=== PATIENT | male | born 1955 | race Caucasian/White ===

== ENCOUNTER 2017-01-12 10:20 | Observation (INO) | payer OTHER ==
[2017-01-12 10:54] LABS: #Basophils 0.1 thou/uL (0.0-0.2); #Eosinphils 0.1 thou/uL (0.0-0.7); #Lymphocytes 3.8 thou/uL (1.20-3.40); #Monocytes 0.6 thou/uL (0.11-0.59); #Neutrophils 4.3 thou/uL (1.40-6.50); %Basophils 1.7 % (0.0-1.0); %Eosinophils 0.7 % (0.0-10.0); %Monocytes 6.7 % (0.0-10.0); Hematocrit 52.3 % (42.0-52.0); Mean Platelet Volume 8.3 fL (7.4-10.4); Red Blood Cell (RBC) Count 5.33 mill/uL (4.70-6.10); White Blood Cell (WBC) Count 8.9 thou/uL (4.8-10.8)
--- NOTE | 2017-01-12 11:07 | RAD ---
ONE VIEW CHEST: HISTORY: Chest pain. COMPARISON: 07/25/2014 and 08/28/2014 FINDINGS: Portable upright chest demonstrates a normal cardiac silhouette. The pulmonary vessels and hilum ar e normal. The costophrenic angles are clear. No mass. No consolidation. No pneumothorax or osseo us abnormality. IMPRESSION: No acute cardiopulmonary process. POS: [facility]
[2017-01-12 11:20] LABS: ALT (SGPT) 12 U/L (8-55); AST (SGOT) 15 U/L (5-34); Alkaline Phosphatase 68 U/L (40-150); Anion Gap 14 mmol/L (10-20); BUN (Urea Nitrogen) 8 mg/dL (8.4-25.7); Bilirubin, Total 1.3 mg/dL (0.2-1.2); Calc. Creatinine Clearance 0 mL/min (70-130); Calcium 9.5 mg/dL (7.8-10.44); Carbon Dioxide 28 mmol/L (22-29); Chloride 98 mmol/L (98-107); Estimated GFR-MDRD Greater than 90
[2017-01-12 11:24] LABS: Troponin I Less than 0.010 ng/mL (< 0.028)
[2017-01-12] MEDS ORDERED: methylPREDNISolone Sod Succ/PF 125 MG/2 ML VIAL ONE ×2 (12:42→12:44)
[2017-01-12 14:25] LABS: Troponin I Less than 0.010 ng/mL (< 0.028)
[2017-01-12] MEDS ORDERED: Enoxaparin Sodium 40 MG/0.4 ML SYRINGE SC SCH (14:37)
[2017-01-12] MEDS ORDERED: Acetaminophen 325 MG TAB PO PRN (14:37)
[2017-01-12] MEDS ORDERED: Ondansetron ODT 4 MG TAB PO PRN (14:37)
[2017-01-12] MEDS ORDERED: Ondansetron HCl/PF 4 MG/2 ML Vial IVP PRN (14:37)
[2017-01-12] MEDS ORDERED: Bisacodyl 5 MG TAB PO PRN (14:37)
[2017-01-12] MEDS ORDERED: Aspirin 81 mg Enteric Coated Tablet PO SCH (14:37)
[2017-01-12] MEDS ORDERED: Bisacodyl 10 MG SUPP PR PRN (14:37)
[2017-01-12] MEDS ORDERED: Nitroglycerin 0.4 MG TAB (25 Tab Bottle) PO PRN (14:37)
[2017-01-12] MEDS ORDERED: Acetaminophen 650 MG Suppository PR PRN (14:37)
[2017-01-12 14:47] VITALS: BMI 33.9
[2017-01-12 15:19] LABS: PTT 25.8 SEC (22.9-36.1); Prothrombin Time 12.7 SEC (12.0-14.7)
[2017-01-12 15:24] LABS: Hemoglobin A1c 5.1 % (4.0-6.0)
--- NOTE | 2017-01-12 17:05 | HP ---
OBSERVATION STATUS CHIEF COMPLAINT: Chest pain. HISTORY OF PRESENT ILLNESS: This is a 61-year-old old male with past history of hypertension, hyper lipidemia, tobacco abuse, and COPD, who presents with a week history of worsening cough with questio nable sputum production and increased shortness of breath. Last night he had an episode about 2 min rs where he just could not catch his breath and nearly came into the hospital, but he felt like he m ay be improved a bit with use of his inhaler. This worsened today and he decided to come and be see n. In addition to this, he has also had some lower sternal chest pain that does not radiate, it is moderate to severe in nature and lasts anywhere from 30 seconds to a minute at a time. Sometimes it is exertional, sometimes it is not, it is not consistently relieved with rest, it is not associated with any nausea, vomiting, or diaphoresis. He has not been taking any medications for this. REVIEW OF SYSTEMS: Constitutional: Denies fever or chills. Eyes: Denies icterus or injection or eye pain. Ears, Nose, Mouth, Throat. Denies sore throat or ear pain. Cardiovascular: See HPI. Resp iratory: See HPI. Gastrointestinal: No nausea, vomiting, constipation, or diarrhea. Genitourinar y: No dysuria or urgency. Musculoskeletal: No myalgias or arthralgias. Skin: He has multiple ki nd of scattered abrasions, but denies a wound or rash. Neurologic: Denies weakness or numbness. P sychiatric: Denies anxiety or depression. All other systems reviewed and are negative. PAST MEDICAL HISTORY: Positive for hypertension, COPD, and hyperlipidemia. PAST SURGICAL HISTORY: Positive for 2 shoulder surgeries. FAMILY HISTORY: Noncontributory. MEDICATIONS: Hydrochlorothiazide and ProAir. SOCIAL HISTORY: Drinks 4-5 beers a day to every other day and has a longstanding history, also has about a [id number] history of smoking. Denies drug use. ALLERGIES: No known drug allergies. PHYSICAL EXAMINATION: VITAL SIGNS: Pulse in the 70s, blood pressure is one-teens over 70s, satting 96% on room air and af ebrile. GENERAL: He is in no acute distress. EYES: Without icterus or injection. Pupils equal, round, reactive to light. EARS, NOSE, MOUTH, THROAT: Moist mucous membranes. Pinna is normal and no rhinorrhea. NECK: Trachea midline, mobile without thyromegaly. CARDOVASCULAR: Regular rate and rhythm without murmur, gallops or rub. No peripheral edema or izquierdo tid bruit. RESPIRATORY: He is slightly tachypneic. No prominent retractions. He has diffuse inspiratory and expiratory wheezes with inspiratory crackles on the left side. GASTROINTESTINAL: Bowel sounds positive. Obese. Nontender to palpation. I cannot palpate any org anomegaly. GENITOURINARY: Deferred. MUSCULOSKELETAL: Without any deformity or contracture or joint swelling. SKIN: He has some scattered abrasions on the lower extremities, but otherwise no wound or rash. NEUROLOGIC: Motor 5/5 throughout. Sensation intact to light touch throughout as well. PSYCHIATRIC: Alert and oriented x3. Mood and affect appropriate for current medical condition. LABORATORY DATA: CBC was reviewed, pertinent for MCV of 98.1. Chemistries reviewed and it is perti nent for a total bilirubin of 1.3, normal renal function, negative BNP and a negative troponin. I a m unable to view of the chest x-ray myself, but the interpretation reads no acute cardiopulmonary pr ocess and again I will attempt to find the EKG which is currently not visible to me. ASSESSMENT AND PLAN: This is a 61-year-old male with: 1. Chest pain. We will go ahead and make n.p.o. at midnight and schedule for pharmacologic stress test in the morning after ruling out by enzymes. 2. Chronic obstructive pulmonary disease exacerbation. He has been started on Levaquin. This is a reasonable choice. We will also schedule DuoNebs q.4, p.r.n. as well. Prednisone 40 daily for 5 d ays and begin a controller medication in the morning. 3. Obesity. Counseled diet and exercise. 4. Tobacco abuse, counseled cessation. 5. Alcohol abuse, counseled cessation as well. 6. Elevated bilirubin. This could possibly be due to his chronic alcohol use. We will perform a r ight upper quadrant ultrasound to investigate further coagulation, coags to be sent. 7. Hyperlipidemia. We will start a statin and aspirin as well for his chest pain. Parenteral nitr oglycerin p.r.n. and morphine p.r.n. for his chest pain. 8. DVT prophylaxis with Lovenox. 9. History of hypertension. We will monitor, currently he is doing well. Continue hydrochlorothia zide or JUANITA inhibitor pending results of laboratory testing to include TSH, lipid panel, A1c and hep atitis panel.
[2017-01-12 17:58] LABS: Troponin I Less than 0.010 ng/mL (< 0.028)
[2017-01-12] MEDS ORDERED: Famotidine 20 MG TAB PO SCH (21:00)
[2017-01-12] MEDS ORDERED: Atorvastatin Calcium 40 MG TAB PO SCH (21:00)
[2017-01-12] MEDS ORDERED: Nicotine 14 MG PATCH TD SCH (22:00)
--- NOTE | 2017-01-12 22:33 | HP-2 ---
DATE OF ADMISSION: 01/12/2017 LOCATION OF ADMISSION: [facility]. CODE STATUS: FULL. PRIMARY CARE PHYSICIAN: Dr. Bob. ATTENDING: Walter Rashid MD RESIDENT: Tereso Wilson MD, PGY-1. CHIEF COMPLAINT: Shortness of breath, chest pain. HISTORY OF PRESENT ILLNESS: This is a 61-year-old male with chest pain, presents with chest pain and shortness of breath. He states that a couple of weeks ago he started feeling ill, started having an increased cough. He said when he was coughing he was not coughing an abnormal sputum. Last night he had an episode where he could not hardly breathe. It lasted about 2 hours. He was continually using his nebulizer and albuterol, said there were multiple times in this episode where he could not get his breath, said he finally got better. During this time, he also reported being clammy. Denies any fever or chills. States he did not come to the ER as he had a doctor's appointment with Dr. Bob today. He also reports having chest pain a couple of nights ago lasting about 30-40 seconds. He said he has had this chest pain for about 2-3 months, says it happens about 3-4 times a week. He says the most times it happens is after his cutting grass on his riding lawnmower or arguing with his . He said that he also has some shortness of breath and he said he tried one time using albuterol and did not relieve the pain. He said his head squeezes with the chest pain and reports a little bit of numbness and tingling unilaterally in his left leg when the chest pain comes on. He reports nothing seems to relieve it, goes away pretty shortly. Denies any other symptoms. Denies any nausea, vomiting, diarrhea, or constipation. Denies any headaches, loss of vision, or dizziness. Denies any weakness or decreased strength. Denies any other complaints at this time. REVIEW OF SYSTEMS: All review of systems not listed in the HPI are otherwise negative at this time. PAST MEDICAL HISTORY: 1. COPD. 2. Hypertension. 3. Tobacco use. 4. Hyperlipidemia. 5. Osteoarthritis. PAST SURGICAL HISTORY: He has had a shoulder surgery in the past. ALLERGIES: None. MEDICATIONS: Hydrochlorothiazide 25 mg, ipratropium/albuterol 0.5 mg/3 mg, ProAir 2-3 times a day. FAMILY HISTORY: Mother had stomach cancer. Dad, insignificant. SOCIAL HISTORY: He is a 1 pack per day smoker for the last 40 years. Drinks 4- 5 beers every other day. No illicit drug use. PHYSICAL EXAMINATION: VITAL SIGNS: Blood pressure 124/81, pulse is 60, respirations 22, temperature 98.7, pulse ox is 99% on room air, current weight is 111 kilograms. GENERAL: He is alert and oriented x3. Well developed, obese, appropriately interactive. EYES: Conjunctivae within normal limits. ENT: Oropharynx within normal limit. Moist mucous membranes. NECK: Supple, no lymphadenopathy, no thyromegaly, no bruits. CARDIOVASCULAR: Regular rate and rhythm. No murmurs, no gallops. Radial pulses, pedal pulses palpated bilaterally. RESPIRATORY: Abnormal breathing effort. No retractions. He does have expiratory wheezes in all lung quadrants on auscultation. SKIN: Warm, dry. ABDOMEN: Soft, nontender to palpation. Bowel sounds heard in all 4 quadrants. MUSCULOSKELETAL: Structure within normal limits. Moves all extremities bilaterally. NEUROLOGIC: No focal neuro deficit. PSYCHIATRIC: Appropriate. LABORATORY DATA: White blood cell count 8.9, hemoglobin 17.4, hematocrit 52.3, platelets 195. Sodium 136, potassium 3.8, chloride is 98, bicarbonate 20, BUN is 8, creatinine normal, and glucose 99, albumin is 4.0, total protein is 7.0, total bilirubin is 1.3, calcium is 9.5, AST 15, ALT 12, alkaline phosphatase is 68, CK-MB is 1.4, troponin is less than 0.010 and BNP is 35. EKG showed maybe some conduction delay. Chest x-ray, no acute process noted. ASSESSMENT AND PLAN: 1. Atypical chest pain. We will admit him to tele observation for continuous tele monitoring. We will make him n.p.o. at midnight for an a.m. stress test. We will start him on heart healthy diet for now. We will trend cardiac profile q.3 hours. We will check a fasting lipid panel, TSH, magnesium, phos and A1c. We will give him nitro p.r.n. for chest pain to see if that helps with the pain. He was not taking aspirin or statin. We will start these at this time for cardioprotective effects. 2. Mild chronic obstructive pulmonary disease exacerbation. We will start him on Levaquin and prednisone to help with breathing and coughing. We will start him on DuoNebs q.4 hour schedule and give DuoNebs q.2 hours p.r.n. as needed for shortness of breath. I also have ordered to monitor O2 sat and to use oxygen to keep above 92. 3. Hypertension. We will continue home medications. 4. Hyperlipidemia. We will get a fasting lipid panel and start statin. 5. Elevated bilirubin. We will get a right upper quadrant ultrasound, likely due to beer use. We will also check his PT and PTT to check liver function. 6. Tobacco abuse. We have counseled him on quitting. 7. Deep venous thrombosis prophylaxis. We will use Lovenox at this time. SADIED
[2017-01-13 06:04] LABS: #Basophils 0.1 thou/uL (0.0-0.2); #Lymphocytes 3.1 thou/uL (1.20-3.40); #Monocytes 0.8 thou/uL (0.11-0.59); #Neutrophils 9.9 thou/uL (1.40-6.50); %Basophils 0.6 % (0.0-1.0); %Lymphocytes 22.4 % (21.0-51.0); %Monocytes 5.6 % (0.0-10.0); Hematocrit 48.5 % (42.0-52.0); Mean Platelet Volume 9.1 fL (7.4-10.4); Red Blood Cell (RBC) Count 4.92 mill/uL (4.70-6.10); White Blood Cell (WBC) Count 13.8 thou/uL (4.8-10.8)
[2017-01-13 06:15] LABS: ALT (SGPT) 11 U/L (8-55); AST (SGOT) 12 U/L (5-34); Alkaline Phosphatase 65 U/L (40-150); Anion Gap 13 mmol/L (10-20); BUN (Urea Nitrogen) 14 mg/dL (8.4-25.7); Bilirubin, Total 0.7 mg/dL (0.2-1.2); Calc. Creatinine Clearance 135 mL/min (70-130); Calcium 9.4 mg/dL (7.8-10.44); Carbon Dioxide 26 mmol/L (22-29); Chloride 99 mmol/L (98-107); Cholesterol 169 mg/dl (< 200 Desired); Estimated GFR-MDRD 84; Globulin 2.9 g/dL (2.4-3.5); LDL Cholesterol, Calculated 101 mg/dL; Protein, Total 6.6 g/dL (6.0-8.3)
[2017-01-13] MEDS ORDERED: predniSONE 20 MG TAB PO SCH (08:00)
--- NOTE | 2017-01-13 08:38 | PDOC.FM ---
- Subjective Subjective: Pt reports doing well this morning. Is just hungry waiting for his stress test. Had no chest pain overnight. Denies any SOB or coughing episodes overnight. Denies any fever or chills. Denies any other problems at this time. - Objective MAR Reviewed: Yes Vital Signs & Weight: Vital Signs (12 hours) Temp Pulse Resp BP BP Pulse Ox 01/13/17 06:52 76 15 96 01/13/17 05:01 97.6 F 75 20 124/66 94 L 01/13/17 02:14 78 12 01/12/17 23:15 98.3 F 77 18 106/62 96 01/12/17 22:06 12 Weight Weight 112.128 kg I&O: 01/12/17 01/13/17 01/14/17 06:59 06:59 06:59 Intake Total 480 Balance 480 Result Diagrams: 01/13/17 04:58 01/13/17 04:58 Radiology Reviewed by me: Yes (No new imaging to be reviewed today) <Tereso Wilson - Last Filed: 01/13/17 08:36> - Objective Vital Signs & Weight: Vital Signs (12 hours) Temp Pulse Resp BP BP Pulse Ox 01/13/17 10:32 60 14 97 01/13/17 08:00 98.6 F 77 22 H 110/59 L 92 L 01/13/17 06:52 76 15 96 01/13/17 05:01 97.6 F 75 20 124/66 94 L 01/13/17 02:14 78 12 Weight Weight 247 lb 3.2 oz I&O: 01/12/17 01/13/17 01/14/17 06:59 06:59 06:59 Intake Total 480 Balance 480 Result Diagrams: 01/13/17 04:58 01/13/17 04:58 <Wayne Sykes - Last Filed: 01/13/17 12:57> Phys Exam - Physical Examination HEENT: moist MMs Neck: no nodes, no JVD, supple, full ROM Respiratory: wheezing present, clear to auscultation bilateral Cardiovascular: RRR, no significant murmur, no rub Gastrointestinal: soft, non-tender, no distention, positive bowel sounds Musculoskeletal: no edema, pulses present Neurological: non-focal, moves all 4 limbs Psychiatric: normal affect, A&O x 3 Skin: no rash <Tereso Wilson - Last Filed: 01/13/17 08:36> Dx/Plan (1) Chest pain Code(s): R07.9 - CHEST PAIN, UNSPECIFIED Status: Acute Plan: -NPO, awaiting stress test this AM, if negative likely patient can be D/c today. -Trops x3 were negative -No acute events on tele monitoring -continue with aspirin -Nitro PRN for chest pain (2) Acute exacerbation of chronic obstructive pulmonary disease (COPD) Code(s): J44.1 - CHRONIC OBSTRUCTIVE PULMONARY DISEASE W (ACUTE) EXACERBATION Status: Acute Plan: -PO Levaquin and Prednisone -Violetta Duonebs Q4hrs, Q2hrs for breakthrough SOB -Not requiring Oxygen at this time -Will continue to monitor vitals and tx accordingly (3) Elevated bilirubin Code(s): R17 - UNSPECIFIED JAUNDICE Status: Acute Plan: Total bili .7 today. Resolved -Awaiting results of RUQ u/s -Likely 2/2 to alcohol use. (4) Essential hypertension Code(s): I10 - ESSENTIAL (PRIMARY) HYPERTENSION Status: Acute Plan: -continued home meds -BP stable, will continue to monitor (5) Hyperlipidemia Code(s): E78.5 - HYPERLIPIDEMIA, UNSPECIFIED Status: Acute Plan: -started on Lipitor -Will continue tx when D/C (6) Tobacco abuse Code(s): Z72.0 - TOBACCO USE Status: Acute Plan: -counseled on quitting -Using a nicotine patch <Tereso Wilson - Last Filed: 01/13/17 08:36> Attending Addendum - Attending Addendum I personally evaluated the patient and discussed the management with Dr. Wilson I agree with the History, Examination, Assessment and Plan documented above. <Wayne Sykes - Last Filed: 01/13/17 12:57>
[2017-01-13] MEDS ORDERED: Aspirin 81 mg Enteric Coated Tablet PO SCH (09:00)
[2017-01-13 13:22] VITALS: BP 131/63; TEMP 97.8
--- NOTE | 2017-01-13 13:46 | NM ---
NUCLEAR MEDICINE CARDIAC PERFUSION EXAMINATION WITH EJECTION FRACTION: HISTORY: 61-year-old male with chest pain, COPD, hypertension, and dyslipidemia. TECHNIQUE: A two day nuclear medicine cardiac perfusion examination was performed. Rest images were obtained us ing 30.2 mCi of technetium-99m sestamibi. Stress images were obtained the following day using 27 mCi of technetium-99m sestamibi and Lexiscan. FINDINGS: Tomographic images show no fixed or reversible perfusion defects. Gated images show normal wall yael on with an ejection fraction of 62%. EDV: 176 ml LHR: 0.4 TID: 1.1 IMPRESSION: No evidence of ischemia. POS: [facility]
--- NOTE | 2017-01-13 13:50 | ULT ---
RIGHT UPPER QUADRANT ABDOMINAL ULTRASOUND: Date: 01/13/17 HISTORY: Elevated bilirubin. Evaluate for cirrhosis. TECHNIQUE: Multiplanar Lara scale and color Doppler images were obtained in a right upper quadrant abdominal ul trasound. FINDINGS: There is a small, 8.0 mm, cyst adjacent to the gallbladder. No biliary dilatation is seen. The gallb ladder is predominantly contracted without shadowing stones or gallbladder wall thickening. The comm on bile duct is normal measuring 4.0 mm. The pancreas was obscured by bowel gas. There are echogenic nonshadowing foci of the right kidney wh ich could represent nonobstructing renal calcifications. There is no evidence of hydronephrosis. The right kidney measures 10.3 cm in length. IMPRESSION: 1. Hepatic cysts. 2. Proximal nonobstructing right renal calculi. POS: [facility]
[2017-01-13] MEDS ORDERED: Regadenoson 0.4 MG/5 ML SYRINGE ONE (15:18)
--- NOTE | 2017-01-14 08:53 | DIS-2 ---
DATE OF ADMISSION: 01/12/2017 DATE OF DISCHARGE: 01/13/2017 ADMITTING ATTENDING: Dr. Rashid. DISCHARGE ATTENDING: Wayne Sykes M.D. RESIDENT: Tereso Wilson M.D., PGY1. CONSULTATIONS: None. PROCEDURES: Nuclear medicine stress test, which showed no evidence of ischemia. DIAGNOSES: 1. Atypical chest pain. 2. Mild chronic obstructive pulmonary disease exacerbation. 3. Obesity. 4. Tobacco abuse. 5. Alcohol abuse. 6. Elevated bilirubin. 7. Hyperlipidemia. 8. History of hypertension. DISCHARGE MEDICATIONS: Hydrochlorothiazide 25 mg p.o. daily, prednisone 40 mg p.o. for 3 more days, nicotine 14 mg transdermal q.24 hours, Levaquin 750 mg p.o. once a day for 5 more days, DuoNeb 3 mL nebulizers, Lipitor 40 mg p.o. daily, aspirin 81 mg daily, ProAir 2 puffs inhalers q.4 hours p.r.n., and regular strength Tylenol. DISCONTINUED MEDICATIONS: There were no discontinued medications at this visit. HISTORY OF PRESENT ILLNESS AND BRIEF HOSPITAL COURSE: This is a 61-year-old male with a history of hypertension, hyperlipidemia, tobacco abuse, and COPD, who came in with a 2-week history of worsening cough, having a cough attack the night before that lasted 2 hours where he could not catch his breath after using multiple nebulizers and using albuterol inhaler. He went to the [facility] and was sent over here. There, he also reported that he has had a 2-3 month history of chest pain that feels like someone is punching him in the chest, does not radiate anywhere, this happens 4-5 times a week, lasting anywhere from 30 seconds to a minute, sometimes exertional, sometimes just when he is sitting down, nothing seems to alleviate, and it is not associated with any other symptoms. One time, he did try his albuterol inhaler and did not help it improve and at that time he was admitted. Troponins were trended, they were less than 0.01 x3. He had a nuclear stress test, which was negative. His chest x-ray on admission showed no acute cardiopulmonary process. He is admitted for telemetry observation and no acute events happened overnight. We checked a CBC, which stayed normal. His white blood cell count went from 8.9 TO 13.8 but likely due to steroids. His CMP on admission, he did have elevated total bilirubin of 1.3, when checked the next day was 0.7. The patient did report a history of drinking 4-5 beers a day, likely since he had not been drinking for the last few days, his bilirubin trended downwards. We got a fasting lipid panel on him, which showed a cholesterol of 169 and LDL cholesterol of 101 and HDL cholesterol of 50. His heart disease risk was 3%. Last checked TSH on him, which was normal at 0.9. At this time, patient on his medication list, he only had nebulizers, his ProAir , and hydrochlorothiazide. He was not on an aspirin or statin. At this time, we started him on a baby aspirin and started him on a moderate dose statin for his risk of heart disease. With a mild COPD exacerbation when we saw him, he is satting 99% on room air. Did have expiratory wheezes, we started him on p.o. Levaquin and p.o. course of high dose prednisone. At this time, after stress test was negative, the patient was doing better, had not reported any chest pain, and was stable for discharge. We sent him home to finish off a course of Levaquin for 5 more days and finish his prednisone for 3 more days for a total of 5 days of prednisone. OUTLOOK: Stable. DISCHARGE INSTRUCTIONS: 1. Discharge location: Home. 2. Diet: Heart healthy. 3. Activity: Activity as tolerated. 4. Followup: He will follow up with his primary care provider in 2 weeks for hospital followup. IBRAHIMA
--- NOTE | 2017-01-20 21:49 | EKG ---
Test Reason : Blood Pressure : / mmHG Vent. Rate : 074 BPM Atrial Rate : 074 BPM P-R Int : 200 ms QRS Dur : 120 ms QT Int : 404 ms P-R-T Axes : 060 003 023 degrees QTc Int : 448 ms Normal sinus rhythm Non-specific intra-ventricular conduction delay Borderline ECG When compared with ECG of 21-JUL-2011 10:42, QT has lengthened Confirmed by PETTY VILLAR (2) on 01/20/2017 9:48:39 PM Referred By: AZUCENA Confirmed By:PETTY VILLAR
== END 2017-01-13 15:20 | disposition home or self-care (01) ==
LOC: ERS 10:20 → 2SW 12:41
PROVIDERS: ADMIT Internal Medicine; ATTEND Internal Medicine
DX: R07.89 Other chest pain (principal); J44.1 Chronic obstructive pulmonary disease with (acute) exacerbation; E66.9 Obesity, unspecified; F10.10 Alcohol abuse, uncomplicated; E80.7 Disorder of bilirubin metabolism, unspecified; E78.5 Hyperlipidemia, unspecified; I10 Essential (primary) hypertension; R06.02 Shortness of breath; M19.90 Unspecified osteoarthritis, unspecified site; F17.210 Nicotine dependence, cigarettes, uncomplicated; Z68.33 Body mass index [BMI] 33.0-33.9, adult; Z79.899 Other long term (current) drug therapy; Z98.890 Other specified postprocedural states
CPT/HCPCS: 36415; 71010; 76705; 78452; 80053; 80061; 82553; 83036; 83880; 84443; 84484; 85025; 85610; 85730; 93005; 93010; 93017; 94640; 94760; 96365; 96372; 96375; A9500; G0378; J1650; J1956; J2785; J2930; J7506; J7620

== ENCOUNTER 2017-03-15 07:35 | Outpatient (CLI) | payer OTHER ==
--- NOTE | 2017-03-15 08:22 | RAD ---
AP VIEW OF THE CHEST: INDICATION: History of dyspnea. COMPARISON: Prior exam dated 08/28/14. FINDINGS: No focal consolidation or pleural effusion is evident. Cardiomediastinal silhouette is within normal limits. Multilevel spondylosis is similar. IMPRESSION: No acute cardiopulmonary abnormality. POS: [facility]
== END 2017-03-15 07:36 | disposition home or self-care (01) ==
LOC: RAD 07:35
PROVIDERS: ATTEND Internal Medicine Critical Care Medicine
DX: R06.00 Dyspnea, unspecified (principal)
CPT/HCPCS: 71046

== ENCOUNTER 2017-07-15 09:08 | Outpatient (CLI) | payer OTHER ==
--- NOTE | 2017-07-15 11:24 | CT ---
CT PULMONARY LUNG SCAN WITHOUT CONTRAST: INDICATIONS: A 62-year-old male with a smoking history of 40+ years with shortness of breath. COMPARISON: No comparisons are available. TECHNIQUE: A low-dosed CT examination was performed of the thorax without IV contrast, utilizing a lung cancer s creening protocol. Axial, sagittal, and coronal reformatted images were constructed from the raw olvin a. FINDINGS: There is a small calcified granuloma within the left lower lobe on image 39 of series 3. There is a small, sub-4-mm pulmonary nodule in the right upper lobe, anterior segment, on image 30 of series 3. No suspicious pulmonary nodule is evident. There is scattered central lobular emphysema. There are scattered calcifications involving the thoracic aorta and coronary arteries. The adrenal glands are normal appearing. No acute osseous abnormality is identified. There is multilevel spondylosis of t he lumbar spine. There is confluent flow in the anterior osteophytes, spanning T7 through T11, which can be seen with DISH. IMPRESSION: 1. Lung-RADS category 2S. Tiny nodule seen within the right upper lobe with a low likelihood of bec oming clinically significant active cancer due to size. Continued annual screening with low dose CT in 12 months is recommended. 2. Category S: Centrilobular emphysema. Coronary artery thoracic aortic calcifications. Findings o f prior granulomatous disease. Diffuse idiopathic skeletal hyperostosis (DISH) like changes of the mi d to lower thoracic spine. POS: [facility]
== END 2017-07-15 09:09 | disposition home or self-care (01) ==
LOC: CT 09:08
PROVIDERS: ATTEND Family Medicine
DX: F17.210 Nicotine dependence, cigarettes, uncomplicated (principal); F17.201 Nicotine dependence, unspecified, in remission; J43.9 Emphysema, unspecified; R91.1 Solitary pulmonary nodule; I70.0 Atherosclerosis of aorta
CPT/HCPCS: G0297

== ENCOUNTER 2018-04-14 08:28 | Outpatient (CLI) | payer OTHER ==
--- NOTE | 2018-04-14 09:38 | RAD ---
EXAM: CHEST TWO VIEWS: History: Dyspnea. Comparison: 12-23-17 FINDINGS: Heart size is within normal limits. The lungs are clear. No pneumonia, edema, pleural effusion or oth er acute process. IMPRESSION: Minimal stable chronic changes. No acute intrathoracic disease. Atherosclerosis of the aorta. POS: [facility]
== END 2018-04-14 08:29 | disposition home or self-care (01) ==
LOC: RAD 08:28
PROVIDERS: ATTEND Internal Medicine Critical Care Medicine
DX: R06.00 Dyspnea, unspecified (principal); I70.0 Atherosclerosis of aorta
CPT/HCPCS: 71046

== ENCOUNTER 2018-06-12 18:02 | Emergency (ER) | payer OTHER ==
--- NOTE | 2018-06-12 18:22 | RAD ---
FRadiograph chest one view: HISTORY: 63-year-old male with dyspnea FINDINGS: The visualized lung hernández are clear. The cardiomediastinal silhouette is normal. No pneumothorax. IMPRESSION: No acute cardiopulmonary findings.
[2018-06-12 18:31] LABS: #Basophils 0.1 thou/uL (0.0-0.2); #Eosinphils 0.1 thou/uL (0.0-0.7); #Lymphocytes 3.2 thou/uL (1.20-3.40); #Monocytes 0.7 thou/uL (0.11-0.59); #Neutrophils 6.1 thou/uL (1.40-6.50); %Basophils 1.2 % (0.0-1.0); %Eosinophils 0.5 % (0.0-10.0); %Lymphocytes 31.5 % (21.0-51.0); %Neutrophils 59.8 % (42.0-75.0); Hemoglobin 17.1 g/dL (14.0-18.0); Mean Corpuscular HGB CONC 32.8 g/dL (32.0-36.0); Mean Corpuscular Hemoglobin 32.1 pg (27.0-31.0); Mean Corpuscular Volume 98.1 fL (78.0-98.0); Mean Platelet Volume 9.3 fL (7.4-10.4); Platelet Count 146 thou/uL (130-400); RBC Distribution Width 12.8 % (11.5-14.5); Red Blood Cell (RBC) Count 5.33 mill/uL (4.70-6.10); White Blood Cell (WBC) Count 10.2 thou/uL (4.8-10.8)
[2018-06-12] MEDS ORDERED: predniSONE 20 MG TAB ONE (18:43)
[2018-06-12 18:50] LABS: ALT (SGPT) 17 U/L (8-55); AST (SGOT) 20 U/L (5-34); Albumin 4.3 g/dL (3.4-4.8); Alkaline Phosphatase 85 U/L (40-150); Anion Gap 14 mmol/L (10-20); BUN (Urea Nitrogen) 10 mg/dL (8.4-25.7); Calc. Creatinine Clearance 0 mL/min (70-130); Calcium 9.4 mg/dL (7.8-10.44); Carbon Dioxide 27 mmol/L (23-31); Chloride 102 mmol/L (98-107); Estimated GFR-MDRD 78; Globulin 3.1 g/dL (2.4-3.5); Glucose 85 mg/dL (80-115); Potassium 4.1 mmol/L (3.5-5.1); Protein, Total 7.4 g/dL (5.8-8.1); Sodium 139 mmol/L (136-145)
[2018-06-12] MEDS ORDERED: Acetaminophen 500 MG TAB ONE (19:15)
== END 2018-06-12 19:40 | disposition home or self-care (01) ==
LOC: ERS 18:02
DX: J44.1 Chronic obstructive pulmonary disease with (acute) exacerbation (principal); I10 Essential (primary) hypertension; E78.00 Pure hypercholesterolemia, unspecified; F17.210 Nicotine dependence, cigarettes, uncomplicated
CPT/HCPCS: 36415; 71045; 80053; 83880; 85025; 93005; 94640; J7620

== ENCOUNTER 2018-08-25 08:04 | Outpatient (CLI) | payer OTHER ==
--- NOTE | 2018-08-25 10:35 | CT ---
CT CHEST WITHOUT CONTRAST: INDICATIONS: COPD. Prior history of nicotine dependency with smoking. COMPARISON: CT lung scan from 07/15/2017. TECHNIQUE: Multiple axial tomograms obtained through the chest without IV enhancement. A low dose screening pro tocol was followed. FINDINGS: The tiny nodule in the right upper lobe, described on the prior exam, is not apparent today. On today's exam, there is a focal nodular density in the posterior right lower lobe, paravertebral lo cation, abutting the pleural surface, which is new from the prior study. This also has a linear comp onent and may represent focal infiltrate or atelectasis. In the axial plane, the nodular portion indigo sures approximately 10 mm. In the left lung, there is a 3 mm calcified granuloma in the left lower lobe, peripherally. The mediastinum is unremarkable. Images through the upper abdomen are unremarkable. Degenerative sp ine changes are stable in appearance with bridging osteophytes seen anterolaterally, in the mid thora cic spine, as described previously. IMPRESSION: A new area of nodularity in the posterior right lower lobe, measuring up to 10 mm in the axial plane. This could represent a focal inflammatory infiltrate or focal atelectasis. Recommend clinical jesusita elation regarding symptoms of infiltrate. Short-term followup is suggested, with repeat noncontrast CT in three to four months to re-evaluate. POS: [facility]
== END 2018-08-25 08:05 | disposition home or self-care (01) ==
LOC: CT 08:04
PROVIDERS: ATTEND Family Medicine
DX: F17.200 Nicotine dependence, unspecified, uncomplicated (principal); J44.9 Chronic obstructive pulmonary disease, unspecified; R91.8 Other nonspecific abnormal finding of lung field
CPT/HCPCS: G0297

== ENCOUNTER 2021-09-24 12:39 | Outpatient (CLI) | payer MEDICARE | END 2021-09-24 12:40 | disposition home or self-care (01) | LOC: BICCT 12:39 | PROVIDERS: ATTEND General Practice | DX: Z12.2 Encounter for screening for malignant neoplasm of respiratory organs (principal); F17.219 Nicotine dependence, cigarettes, with unspecified nicotine-induced disorders; J42 Unspecified chronic bronchitis | CPT/HCPCS: 71271 ==

== ENCOUNTER 2022-10-14 10:46 | Outpatient (CLI) | payer MEDICARE | END 2022-10-14 10:47 | disposition home or self-care (01) | LOC: CT 10:46 | PROVIDERS: ATTEND Student in an Organized Health Care Education/Training Program | DX: Z12.2 Encounter for screening for malignant neoplasm of respiratory organs (principal); J44.9 Chronic obstructive pulmonary disease, unspecified; F17.210 Nicotine dependence, cigarettes, uncomplicated | CPT/HCPCS: 71271 ==

== ENCOUNTER 2024-12-14 10:21 | Inpatient (IN) | payer MEDICARE ==
[2024-12-14] MEDS ORDERED: cefTRIAXone (ROCEPHIN) 2 GM VIAL ONE (10:43)
[2024-12-14] MEDS ORDERED: Azithromycin 500 MG VIAL ONE (10:43)
[2024-12-14 11:05] LABS: ALT (SGPT) 20 U/L (Less than 45); AST (SGOT) 25 U/L (11-34); Albumin 4.0 g/dL (3.1-4.5); Alkaline Phosphatase 79 U/L (40-110); Anion Gap 13 mmol/L (10-20); BUN (Urea Nitrogen) 7 mg/dL (8.4-25.7); Bilirubin, Total 1.1 mg/dL (0.3-1.2); Calc. Creatinine Clearance 0 mL/min (70-130); Calcium 9.5 mg/dL (7.8-10.44); Carbon Dioxide 26 mmol/L (23-31); Chloride 107 mmol/L (98-107); Globulin 3.1 g/dL (2.4-3.5); Glucose 121 mg/dL (80-115); Potassium 4.3 mmol/L (3.5-5.1); Sodium 142 mmol/L (136-145)
[2024-12-14 11:17] LABS: #Basophils 0.03 10x3/uL (0.0-0.2); #Eosinophils 0.11 10x3/uL (0.0-0.7); #Monocytes 0.51 10x3/uL (0.11-0.59); #Neutrophils 4.93 10x3/uL (1.40-6.50); %Basophils 0.4 % (0.0-1.0); %Eosinophils 1.4 % (0.0-10.0); %Lymphocytes 26.3 % (21.0-51.0); %Monocytes 6.7 % (0.0-10.0); %Neutrophils 64.8 % (42.0-75.0); Hematocrit 51.4 % (42.0-52.0); Hemoglobin 17.0 g/dL (14.0-18.0); Mean Corpuscular Hemoglobin 32.0 pg (27.0-31.0); Mean Corpuscular Volume 96.8 fL (78.0-98.0); Platelet Count 143 10x3/uL (130-400); Red Blood Cell (RBC) Count 5.31 mill/uL (4.70-6.10); White Blood Cell (WBC) Count 7.61 10x3/uL (4.8-10.8)
[2024-12-14] MEDS ORDERED: Albuterol 2.5 MG (0.5 mL) NEB ONE (12:52)
[2024-12-14] MEDS ORDERED: Albuterol 2.5 MG (3 mL) NEB ONE (12:52)
[2024-12-14] MEDS ORDERED: Melatonin 3 MG TAB PO PRN (15:48)
[2024-12-14] MEDS ORDERED: Methocarbamol 500 MG TAB PO PRN (17:23)
[2024-12-14] MEDS ORDERED: Naproxen 500 MG TAB PO PRN (17:23)
[2024-12-14] MEDS: Etomidate 40 MG (20 mL) VIAL IVP SCH (18:12)
[2024-12-14] MEDS: SUCCINYLCHOLINE/SOD CL,ISO/PF 200 MG/10 ML SYRINGE FS SCH (18:13)
[2024-12-14] MEDS ORDERED: SUCCINYLCHOLINE/SOD CL,ISO/PF 200 MG/10 ML SYRINGE FS ONE (18:15)
[2024-12-14] MEDS ORDERED: Etomidate 40 MG (20 mL) VIAL ONE (18:15)
[2024-12-14] MEDS ORDERED: Propofol BOLUS 1,000 MG/100 ML VIAL IV PRN (18:45)
[2024-12-14] MEDS ORDERED: DISCONTINUE PREVIOUS NARCOTIC PAIN MEDICATIONS AND BENZODIAZEPINES FS SCH (18:45)
[2024-12-14] MEDS ORDERED: Fentanyl BOLUS 100 ML IVPB PRN (18:45)
[2024-12-14 19:32] LABS: Actual Bicarbonate (HCO3a) 24.3 mEq/L (22-28); Base Excess (BEa) -6.1 mEq/L (-2.0 to +3.0); Calcium, Ionized (arterial) 1.24 mmol/L (1.12-1.30); Hematocrit-ABG 50 % (42.0-52.0); Hemoglobin (Hb) 17.0 g/dL (14.0-18.0); O2 Tension (PaO2), arterial 468.0 mmHg (> 80.0); Potassium - ABG Lab 4.88 mmol/L (3.70-5.30)
[2024-12-14] MEDS: Norepinephrine 8 MG/0.9% NS 250 ML IVPB SCH (19:32)
[2024-12-14] MEDS: Norepinephrine 8 MG/0.9% NS 250 ML ONE (19:49)
[2024-12-14 19:56] LABS: ALV-art Gradient 158.500 mmHg (0-20); CO2 Tension 69.2 mmHg (35.0-45.0); Puncture Site Right Brachial art; pH, Arterial 7.164 (7.35-7.45)
[2024-12-15] MEDS: Albumin 25% 25 GM (100 mL) BOT IVPB SCH (03:31)
[2024-12-15 04:25] LABS: #Basophils Less than 0.03 10x3/uL (0.0-0.2); #Eosinophils Less than 0.03 10x3/uL (0.0-0.7); #Monocytes 0.64 10x3/uL (0.11-0.59); #Neutrophils 10.12 10x3/uL (1.40-6.50); %Basophils 0.1 % (0.0-1.0); %Eosinophils 0.0 % (0.0-10.0); %Lymphocytes 20.9 % (21.0-51.0); %Monocytes 4.7 % (0.0-10.0); %Neutrophils 73.8 % (42.0-75.0); Hematocrit 50.9 % (42.0-52.0); Hemoglobin 16.0 g/dL (14.0-18.0); Mean Corpuscular Hemoglobin 31.4 pg (27.0-31.0); Mean Corpuscular Volume 100.0 fL (78.0-98.0); Platelet Count 198 10x3/uL (130-400); Red Blood Cell (RBC) Count 5.09 mill/uL (4.70-6.10); White Blood Cell (WBC) Count 13.72 10x3/uL (4.8-10.8)
[2024-12-15 04:49] LABS: ALT (SGPT) 17 U/L (Less than 45); AST (SGOT) 17 U/L (11-34); Albumin 3.8 g/dL (3.1-4.5); Alkaline Phosphatase 75 U/L (40-110); Anion Gap 15 mmol/L (10-20); BUN (Urea Nitrogen) 16 mg/dL (8.4-25.7); Bilirubin, Total 1.0 mg/dL (0.3-1.2); Calc. Creatinine Clearance 59 mL/min (70-130); Calcium 9.1 mg/dL (7.8-10.44); Carbon Dioxide 24 mmol/L (23-31); Chloride 107 mmol/L (98-107); Globulin 2.7 g/dL (2.4-3.5); Glucose 181 mg/dL (80-115); Potassium 4.7 mmol/L (3.5-5.1); Sodium 141 mmol/L (136-145)
[2024-12-15] MEDS ORDERED: predniSONE 20 MG TAB PO SCH (08:00)
[2024-12-15 08:15] LABS: Actual Bicarbonate (HCO3a) 23.3 mEq/L (22-28); Base Excess (BEa) -0.5 mEq/L (-2.0 to +3.0); CO2 Tension 36.2 mmHg (35.0-45.0); Calcium, Ionized (arterial) 1.18 mmol/L (1.12-1.30); Hematocrit-ABG 47 % (42.0-52.0); Hemoglobin (Hb) 16.0 g/dL (14.0-18.0); O2 Tension (PaO2), arterial 98.0 mmHg (> 80.0); Potassium - ABG Lab 4.31 mmol/L (3.70-5.30); pH, Arterial 7.427 (7.35-7.45)
[2024-12-15 08:17] LABS: ALV-art Gradient 141.950 mmHg (0-20); Puncture Site Right Radial artery
[2024-12-15] MEDS ORDERED: Losartan 25 MG TAB PO SCH (09:00)
[2024-12-15] MEDS ORDERED: NOREPINEPHRINE 8 MG/250 ML-D5W 250 ML IVPB SCH (09:15)
[2024-12-15] MEDS: Enoxaparin 40 MG (0.4 mL) SYRINGE SC SCH (09:20)
[2024-12-15] MEDS: Azithromycin 500 MG in Sodium Chloride 0.9% 250 ML 250 ML IVPB SCH (09:29)
[2024-12-15] MEDS: Mupirocin 1 GM TUBE TP SCH (09:36)
[2024-12-15] MEDS: Thiamine 100 MG TAB PO SCH (09:37)
[2024-12-15] MEDS: Rosuvastatin 20 MG TAB PO SCH (09:37)
[2024-12-15] MEDS: Multivit, Therapeutic 1 TAB PO SCH (09:37)
[2024-12-15] MEDS: Folic Acid 1 MG TAB PO SCH (09:37)
[2024-12-15] MEDS ORDERED: Norepinephrine 8 MG/0.9% NS 250 ML IVPB SCH (09:45)
[2024-12-15] MEDS ORDERED: Dextrose 50% Abboject 50 ML SYRINGE SLOW IVP PRN (10:30)
[2024-12-15] MEDS ORDERED: Glucagon 1 MG/ML KIT IM PRN (10:30)
[2024-12-15] MEDS: Pantoprazole 40 MG VIAL IVP SCH (13:42)
[2024-12-16 03:35] LABS: #Basophils Less than 0.03 10x3/uL (0.0-0.2); #Eosinophils Less than 0.03 10x3/uL (0.0-0.7); #Monocytes 0.51 10x3/uL (0.11-0.59); #Neutrophils 7.54 10x3/uL (1.40-6.50); %Basophils 0.1 % (0.0-1.0); %Eosinophils 0.0 % (0.0-10.0); %Lymphocytes 20.9 % (21.0-51.0); %Monocytes 5.0 % (0.0-10.0); %Neutrophils 73.4 % (42.0-75.0); Hematocrit 44.4 % (42.0-52.0); Hemoglobin 14.0 g/dL (14.0-18.0); Mean Corpuscular Hemoglobin 31.5 pg (27.0-31.0); Mean Corpuscular Volume 100.0 fL (78.0-98.0); Platelet Count 137 10x3/uL (130-400); Red Blood Cell (RBC) Count 4.44 mill/uL (4.70-6.10); White Blood Cell (WBC) Count 10.27 10x3/uL (4.8-10.8)
[2024-12-16 03:48] LABS: ALT (SGPT) 12 U/L (Less than 45); AST (SGOT) 12 U/L (11-34); Albumin 3.3 g/dL (3.1-4.5); Alkaline Phosphatase 59 U/L (40-110); Anion Gap 12 mmol/L (10-20); BUN (Urea Nitrogen) 24 mg/dL (8.4-25.7); Bilirubin, Total 0.6 mg/dL (0.3-1.2); Calc. Creatinine Clearance 69 mL/min (70-130); Calcium 8.4 mg/dL (7.8-10.44); Carbon Dioxide 26 mmol/L (23-31); Chloride 108 mmol/L (98-107); Globulin 2.1 g/dL (2.4-3.5); Glucose 157 mg/dL (80-115); Magnesium 2.4 mg/dL (1.6-2.6); Potassium 4.2 mmol/L (3.5-5.1); Sodium 142 mmol/L (136-145)
[2024-12-16 06:37] LABS: Actual Bicarbonate (HCO3a) 24.6 mEq/L (22-28); Base Excess (BEa) -1.1 mEq/L (-2.0 to +3.0); CO2 Tension 45.0 mmHg (35.0-45.0); Calcium, Ionized (arterial) 1.19 mmol/L (1.12-1.30); Hematocrit-ABG 44 % (42.0-52.0); Hemoglobin (Hb) 14.9 g/dL (14.0-18.0); O2 Tension (PaO2), arterial 133.0 mmHg (> 80.0); Potassium - ABG Lab 3.90 mmol/L (3.70-5.30); pH, Arterial 7.356 (7.35-7.45)
[2024-12-16 06:44] LABS: ALV-art Gradient 95.950 mmHg (0-20); Puncture Site Right Radial artery
[2024-12-16] MEDS: Pantoprazole 40 MG VIAL IVP SCH (08:13)
[2024-12-16] MEDS: Midazolam In 0.9 % NaCl/PF 100 ML IVPB SCH (09:53)
[2024-12-16] MEDS: Norepinephrine 8 MG/0.9% NS 250 ML IVPB SCH (17:59)
[2024-12-16] MEDS: Norepinephrine 8 MG/0.9% NS 250 ML ONE (17:59)
[2024-12-16] MEDS: Norepinephrine 8 MG/0.9% NS 0 ML ONE (17:59)
[2024-12-17 04:13] LABS: #Basophils Less than 0.03 10x3/uL (0.0-0.2); #Eosinophils Less than 0.03 10x3/uL (0.0-0.7); #Monocytes 0.64 10x3/uL (0.11-0.59); #Neutrophils 11.29 10x3/uL (1.40-6.50); %Basophils 0.0 % (0.0-1.0); %Eosinophils 0.0 % (0.0-10.0); %Lymphocytes 14.6 % (21.0-51.0); %Monocytes 4.5 % (0.0-10.0); %Neutrophils 80.2 % (42.0-75.0); Hematocrit 44.4 % (42.0-52.0); Hemoglobin 13.5 g/dL (14.0-18.0); Mean Corpuscular Hemoglobin 31.4 pg (27.0-31.0); Mean Corpuscular Volume 103.3 fL (78.0-98.0); Platelet Count 151 10x3/uL (130-400); Red Blood Cell (RBC) Count 4.30 mill/uL (4.70-6.10); White Blood Cell (WBC) Count 14.08 10x3/uL (4.8-10.8)
[2024-12-17 04:38] LABS: ALT (SGPT) 12 U/L (Less than 45); AST (SGOT) 13 U/L (11-34); Albumin 3.1 g/dL (3.1-4.5); Alkaline Phosphatase 52 U/L (40-110); Anion Gap 13 mmol/L (10-20); BUN (Urea Nitrogen) 39 mg/dL (8.4-25.7); Bilirubin, Total 0.4 mg/dL (0.3-1.2); Calc. Creatinine Clearance 58 mL/min (70-130); Calcium 8.0 mg/dL (7.8-10.44); Carbon Dioxide 24 mmol/L (23-31); Chloride 112 mmol/L (98-107); Globulin 2.2 g/dL (2.4-3.5); Glucose 130 mg/dL (80-115); Potassium 4.8 mmol/L (3.5-5.1); Sodium 144 mmol/L (136-145)
[2024-12-17 09:44] LABS: Bacteria/HPF 1+ HPF (None Seen)
[2024-12-17 09:56] LABS: Sodium, Urine Less than 20 mmol/L (Not Available); Urea Nitrogen, Random Urine 531 mg/dl
[2024-12-17] MEDS: Metoclopramide HCl 10 MG (2 mL) VIAL IVP SCH (10:07)
[2024-12-18 05:06] LABS: #Basophils Less than 0.03 10x3/uL (0.0-0.2); #Eosinophils Less than 0.03 10x3/uL (0.0-0.7); #Monocytes 0.67 10x3/uL (0.11-0.59); #Neutrophils 7.86 10x3/uL (1.40-6.50); %Basophils 0.2 % (0.0-1.0); %Eosinophils 0.0 % (0.0-10.0); %Lymphocytes 19.7 % (21.0-51.0); %Monocytes 6.2 % (0.0-10.0); %Neutrophils 72.2 % (42.0-75.0); Hematocrit 45.7 % (42.0-52.0); Hemoglobin 14.5 g/dL (14.0-18.0); Mean Corpuscular Hemoglobin 32.2 pg (27.0-31.0); Mean Corpuscular Volume 101.3 fL (78.0-98.0); Platelet Count 162 10x3/uL (130-400); Red Blood Cell (RBC) Count 4.51 mill/uL (4.70-6.10); White Blood Cell (WBC) Count 10.88 10x3/uL (4.8-10.8)
[2024-12-18 05:19] LABS: ALT (SGPT) 13 U/L (Less than 45); AST (SGOT) 15 U/L (11-34); Albumin 3.3 g/dL (3.1-4.5); Alkaline Phosphatase 54 U/L (40-110); Anion Gap 12 mmol/L (10-20); BUN (Urea Nitrogen) 47 mg/dL (8.4-25.7); Bilirubin, Total 0.7 mg/dL (0.3-1.2); Calc. Creatinine Clearance 64 mL/min (70-130); Calcium 8.0 mg/dL (7.8-10.44); Carbon Dioxide 26 mmol/L (23-31); Chloride 110 mmol/L (98-107); Globulin 2.3 g/dL (2.4-3.5); Glucose 131 mg/dL (80-115); Potassium 4.9 mmol/L (3.5-5.1); Sodium 143 mmol/L (136-145)
[2024-12-18 07:08] LABS: Actual Bicarbonate (HCO3a) 22.3 mEq/L (22-28); Base Excess (BEa) -4.6 mEq/L (-2.0 to +3.0); CO2 Tension 48.0 mmHg (35.0-45.0); Calcium, Ionized (arterial) 1.19 mmol/L (1.12-1.30); Hematocrit-ABG 45 % (42.0-52.0); Hemoglobin (Hb) 15.3 g/dL (14.0-18.0); O2 Tension (PaO2), arterial 80.4 mmHg (> 80.0); Potassium - ABG Lab 4.89 mmol/L (3.70-5.30); pH, Arterial 7.285 (7.35-7.45)
[2024-12-18 07:09] LABS: Puncture Site Right Radial artery
[2024-12-18 07:10] LABS: ALV-art Gradient 144.800 mmHg (0-20)
[2024-12-18] MEDS: Furosemide 40 MG (4 mL) VIAL SLOW IVP SCH (09:13)
[2024-12-19 04:47] LABS: #Basophils Less than 0.03 10x3/uL (0.0-0.2); #Eosinophils Less than 0.03 10x3/uL (0.0-0.7); #Monocytes 0.74 10x3/uL (0.11-0.59); #Neutrophils 6.81 10x3/uL (1.40-6.50); %Basophils 0.2 % (0.0-1.0); %Eosinophils 0.0 % (0.0-10.0); %Lymphocytes 25.4 % (21.0-51.0); %Monocytes 7.1 % (0.0-10.0); %Neutrophils 65.1 % (42.0-75.0); Hematocrit 46.5 % (42.0-52.0); Hemoglobin 14.3 g/dL (14.0-18.0); Mean Corpuscular Hemoglobin 31.6 pg (27.0-31.0); Mean Corpuscular Volume 102.9 fL (78.0-98.0); Platelet Count 153 10x3/uL (130-400); Red Blood Cell (RBC) Count 4.52 mill/uL (4.70-6.10); White Blood Cell (WBC) Count 10.45 10x3/uL (4.8-10.8)
[2024-12-19 05:02] LABS: ALT (SGPT) 20 U/L (Less than 45); AST (SGOT) 18 U/L (11-34); Albumin 3.3 g/dL (3.1-4.5); Alkaline Phosphatase 55 U/L (40-110); Anion Gap 11 mmol/L (10-20); BUN (Urea Nitrogen) 61 mg/dL (8.4-25.7); Bilirubin, Total 0.7 mg/dL (0.3-1.2); Calc. Creatinine Clearance 76 mL/min (70-130); Calcium 8.2 mg/dL (7.8-10.44); Carbon Dioxide 27 mmol/L (23-31); Chloride 109 mmol/L (98-107); Globulin 2.3 g/dL (2.4-3.5); Glucose 130 mg/dL (80-115); Potassium 5.3 mmol/L (3.5-5.1); Sodium 142 mmol/L (136-145)
[2024-12-19 07:33] LABS: Actual Bicarbonate (HCO3a) 27.2 mEq/L (22-28); Base Excess (BEa) -1.1 mEq/L (-2.0 to +3.0); Calcium, Ionized (arterial) 1.21 mmol/L (1.12-1.30); Hematocrit-ABG 46 % (42.0-52.0); Hemoglobin (Hb) 15.7 g/dL (14.0-18.0); O2 Tension (PaO2), arterial 67.6 mmHg (> 80.0); Potassium - ABG Lab 5.28 mmol/L (3.70-5.30); pH, Arterial 7.273 (7.35-7.45)
[2024-12-19 07:34] LABS: ALV-art Gradient 142.475 mmHg (0-20); CO2 Tension 60.1 mmHg (35.0-45.0); Puncture Site Right Radial artery
[2024-12-20 04:42] LABS: #Basophils Less than 0.03 10x3/uL (0.0-0.2); #Eosinophils Less than 0.03 10x3/uL (0.0-0.7); #Monocytes 0.68 10x3/uL (0.11-0.59); #Neutrophils 5.67 10x3/uL (1.40-6.50); %Basophils 0.2 % (0.0-1.0); %Eosinophils 0.0 % (0.0-10.0); %Lymphocytes 27.6 % (21.0-51.0); %Monocytes 7.5 % (0.0-10.0); %Neutrophils 62.8 % (42.0-75.0); Hematocrit 46.1 % (42.0-52.0); Hemoglobin 14.4 g/dL (14.0-18.0); Mean Corpuscular Hemoglobin 31.7 pg (27.0-31.0); Mean Corpuscular Volume 101.5 fL (78.0-98.0); Platelet Count 144 10x3/uL (130-400); Red Blood Cell (RBC) Count 4.54 mill/uL (4.70-6.10); White Blood Cell (WBC) Count 9.03 10x3/uL (4.8-10.8)
[2024-12-20 05:17] LABS: ALT (SGPT) 24 U/L (Less than 45); AST (SGOT) 19 U/L (11-34); Albumin 3.0 g/dL (3.1-4.5); Alkaline Phosphatase 62 U/L (40-110); Anion Gap 12 mmol/L (10-20); BUN (Urea Nitrogen) 71 mg/dL (8.4-25.7); Bilirubin, Total 0.7 mg/dL (0.3-1.2); Calc. Creatinine Clearance 75 mL/min (70-130); Calcium 8.3 mg/dL (7.8-10.44); Carbon Dioxide 29 mmol/L (23-31); Chloride 112 mmol/L (98-107); Globulin 2.4 g/dL (2.4-3.5); Glucose 118 mg/dL (80-115); Potassium 5.7 mmol/L (3.5-5.1); Sodium 147 mmol/L (136-145)
[2024-12-20 07:43] LABS: Actual Bicarbonate (HCO3a) 27.2 mEq/L (22-28); Base Excess (BEa) -0.8 mEq/L (-2.0 to +3.0); CO2 Tension 57.9 mmHg (35.0-45.0); Calcium, Ionized (arterial) 1.24 mmol/L (1.12-1.30); Hematocrit-ABG 46 % (42.0-52.0); Hemoglobin (Hb) 15.7 g/dL (14.0-18.0); O2 Tension (PaO2), arterial 67.5 mmHg (> 80.0); Potassium - ABG Lab 5.21 mmol/L (3.70-5.30); pH, Arterial 7.289 (7.35-7.45)
[2024-12-20 07:50] LABS: ALV-art Gradient 145.325 mmHg (0-20); Puncture Site RR
[2024-12-20] MEDS: Sodium Polystyrene Sulfonate 15 GM (60 mL) BOT PER TUBE SCH (07:55)
[2024-12-20] MEDS: Senokot S 8.6-50 MG TAB PER TUBE SCH (09:14)
[2024-12-20] MEDS ORDERED: cloNIDine 0.1 MG TAB PO PRN (12:04)
[2024-12-20 13:40] LABS: Albumin 3.2 g/dL (3.1-4.5); Anion Gap 8 mmol/L (10-20); BUN (Urea Nitrogen) 74 mg/dL (8.4-25.7); BUN/Creatinine Ratio 45.12; Calc. Creatinine Clearance 81 mL/min (70-130); Calcium 8.3 mg/dL (7.8-10.44); Carbon Dioxide 30 mmol/L (23-31); Chloride 112 mmol/L (98-107); Glucose 134 mg/dL (80-115); Potassium 5.4 mmol/L (3.5-5.1); Sodium 145 mmol/L (136-145)
[2024-12-20 14:33] LABS: Bacteria/HPF None Seen HPF (None Seen); Glucose, Urine (Dipstick) Normal (Negative); Leukocyte Negative Leu/uL (Negative); Protein, Urine (Dipstick) Negative (Neg-Trace); RBC/HPF 0-3 HPF (0-3); Specific Gravity, Urine 1.017 (1.002-1.036); WBC/HPF None Seen HPF (0-3)
[2024-12-21 05:10] LABS: #Basophils Less than 0.03 10x3/uL (0.0-0.2); #Eosinophils Less than 0.03 10x3/uL (0.0-0.7); #Monocytes 0.79 10x3/uL (0.11-0.59); #Neutrophils 5.74 10x3/uL (1.40-6.50); %Basophils 0.2 % (0.0-1.0); %Eosinophils 0.0 % (0.0-10.0); %Lymphocytes 26.0 % (21.0-51.0); %Monocytes 8.6 % (0.0-10.0); %Neutrophils 62.3 % (42.0-75.0); Hematocrit 48.5 % (42.0-52.0); Hemoglobin 14.7 g/dL (14.0-18.0); Mean Corpuscular Hemoglobin 31.1 pg (27.0-31.0); Mean Corpuscular Volume 102.8 fL (78.0-98.0); Platelet Count 148 10x3/uL (130-400); Red Blood Cell (RBC) Count 4.72 mill/uL (4.70-6.10); White Blood Cell (WBC) Count 9.21 10x3/uL (4.8-10.8)
[2024-12-21 05:27] LABS: ALT (SGPT) 40 U/L (Less than 45); AST (SGOT) 26 U/L (11-34); Albumin 3.2 g/dL (3.1-4.5); Alkaline Phosphatase 61 U/L (40-110); Anion Gap 8 mmol/L (10-20); BUN (Urea Nitrogen) 72 mg/dL (8.4-25.7); Bilirubin, Total 0.7 mg/dL (0.3-1.2); Calc. Creatinine Clearance 93 mL/min (70-130); Calcium 8.7 mg/dL (7.8-10.44); Carbon Dioxide 33 mmol/L (23-31); Chloride 116 mmol/L (98-107); Globulin 2.3 g/dL (2.4-3.5); Glucose 124 mg/dL (80-115); Potassium 5.4 mmol/L (3.5-5.1); Sodium 152 mmol/L (136-145)
[2024-12-21 07:31] LABS: Actual Bicarbonate (HCO3a) 31.3 mEq/L (22-28); Base Excess (BEa) 2.9 mEq/L (-2.0 to +3.0); CO2 Tension 63.2 mmHg (35.0-45.0); Calcium, Ionized (arterial) 1.28 mmol/L (1.12-1.30); Hematocrit-ABG 48 % (42.0-52.0); Hemoglobin (Hb) 16.3 g/dL (14.0-18.0); Potassium - ABG Lab 5.31 mmol/L (3.70-5.30); pH, Arterial 7.312 (7.35-7.45)
[2024-12-21 07:32] LABS: ALV-art Gradient 154.300 mmHg (0-20); O2 Tension (PaO2), arterial 51.9 mmHg (> 80.0); Puncture Site Right Radial artery
[2024-12-21] MEDS: hydrALAZINE 20 MG/ML VIAL SLOW IVP PRN (09:00)
[2024-12-21] MEDS: niCARdipine 25 MG in Sodium Chloride 0.9% 250 ML 250 ML IVPB SCH (09:11)
[2024-12-21] MEDS: LOKELMA 10 GM PACKET PER TUBE SCH (09:52)
[2024-12-21 17:30] LABS: Albumin 3.3 g/dL (3.1-4.5); Anion Gap 11 mmol/L (10-20); BUN (Urea Nitrogen) 75 mg/dL (8.4-25.7); BUN/Creatinine Ratio 50.00; Calc. Creatinine Clearance 88 mL/min (70-130); Calcium 9.1 mg/dL (7.8-10.44); Carbon Dioxide 30 mmol/L (23-31); Chloride 115 mmol/L (98-107); Glucose 105 mg/dL (80-115); Potassium 4.2 mmol/L (3.5-5.1); Sodium 152 mmol/L (136-145)
[2024-12-21] MEDS: PHOS-NAK 1 PKT PACK PO SCH (18:23)
[2024-12-21] MEDS: DC Sedation Protocol FS ONE (18:23)
[2024-12-22 07:00] LABS: #Basophils 0.03 10x3/uL (0.0-0.2); #Eosinophils Less than 0.03 10x3/uL (0.0-0.7); #Monocytes 0.78 10x3/uL (0.11-0.59); #Neutrophils 8.77 10x3/uL (1.40-6.50); %Basophils 0.3 % (0.0-1.0); %Eosinophils 0.0 % (0.0-10.0); %Lymphocytes 17.1 % (21.0-51.0); %Monocytes 6.6 % (0.0-10.0); %Neutrophils 73.8 % (42.0-75.0); Hematocrit 47.4 % (42.0-52.0); Hemoglobin 14.7 g/dL (14.0-18.0); Mean Corpuscular Hemoglobin 31.7 pg (27.0-31.0); Mean Corpuscular Volume 102.2 fL (78.0-98.0); Platelet Count 111 10x3/uL (130-400); Red Blood Cell (RBC) Count 4.64 mill/uL (4.70-6.10); White Blood Cell (WBC) Count 11.87 10x3/uL (4.8-10.8)
[2024-12-22 08:13] LABS: ALT (SGPT) 91 U/L (Less than 45); AST (SGOT) 69 U/L (11-34); Albumin 3.3 g/dL (3.1-4.5); Alkaline Phosphatase 69 U/L (40-110); Anion Gap 11 mmol/L (10-20); BUN (Urea Nitrogen) 58 mg/dL (8.4-25.7); Bilirubin, Total 1.9 mg/dL (0.3-1.2); Calc. Creatinine Clearance 99 mL/min (70-130); Calcium 8.9 mg/dL (7.8-10.44); Carbon Dioxide 32 mmol/L (23-31); Chloride 113 mmol/L (98-107); Globulin 2.4 g/dL (2.4-3.5); Glucose 121 mg/dL (80-115); Potassium 4.6 mmol/L (3.5-5.1); Sodium 151 mmol/L (136-145)
[2024-12-22] MEDS ORDERED: NIFEdipine XL 60 MG ER.TAB PO SCH (09:15)
[2024-12-22 15:59] LABS: ALT (SGPT) 80 U/L (Less than 45); AST (SGOT) 60 U/L (11-34); Albumin 3.2 g/dL (3.1-4.5); Alkaline Phosphatase 67 U/L (40-110); Anion Gap 13 mmol/L (10-20); BUN (Urea Nitrogen) 52 mg/dL (8.4-25.7); Bilirubin, Total 2.1 mg/dL (0.3-1.2); CK (CPK) 529 U/L (30-200); Calc. Creatinine Clearance 115 mL/min (70-130); Calcium 8.7 mg/dL (7.8-10.44); Carbon Dioxide 32 mmol/L (23-31); Chloride 109 mmol/L (98-107); Globulin 2.6 g/dL (2.4-3.5); Glucose 135 mg/dL (80-115); Potassium 5.2 mmol/L (3.5-5.1); Sodium 149 mmol/L (136-145)
[2024-12-22] MEDS: LOKELMA 10 GM PACKET PO SCH (17:49)
[2024-12-22] MEDS: NIFEdipine XL 60 MG ER.TAB PO SCH (21:50)
[2024-12-23 04:42] LABS: #Basophils Less than 0.03 10x3/uL (0.0-0.2); #Eosinophils Less than 0.03 10x3/uL (0.0-0.7); #Monocytes 1.05 10x3/uL (0.11-0.59); #Neutrophils 10.08 10x3/uL (1.40-6.50); %Basophils 0.1 % (0.0-1.0); %Eosinophils 0.0 % (0.0-10.0); %Lymphocytes 20.7 % (21.0-51.0); %Monocytes 7.3 % (0.0-10.0); %Neutrophils 69.8 % (42.0-75.0); Hematocrit 44.8 % (42.0-52.0); Hemoglobin 14.7 g/dL (14.0-18.0); Mean Corpuscular Hemoglobin 31.5 pg (27.0-31.0); Mean Corpuscular Volume 96.1 fL (78.0-98.0); Platelet Count 111 10x3/uL (130-400); Red Blood Cell (RBC) Count 4.66 mill/uL (4.70-6.10); White Blood Cell (WBC) Count 14.44 10x3/uL (4.8-10.8)
[2024-12-23 04:54] LABS: ALT (SGPT) 75 U/L (Less than 45); AST (SGOT) 48 U/L (11-34); Albumin 3.1 g/dL (3.1-4.5); Alkaline Phosphatase 70 U/L (40-110); Anion Gap 11 mmol/L (10-20); BUN (Urea Nitrogen) 44 mg/dL (8.4-25.7); Bilirubin, Total 2.2 mg/dL (0.3-1.2); Calc. Creatinine Clearance 113 mL/min (70-130); Calcium 8.6 mg/dL (7.8-10.44); Carbon Dioxide 29 mmol/L (23-31); Chloride 106 mmol/L (98-107); Globulin 2.3 g/dL (2.4-3.5); Glucose 131 mg/dL (80-115); Potassium 4.2 mmol/L (3.5-5.1); Sodium 142 mmol/L (136-145)
[2024-12-23] MEDS: Ondansetron PF 4 MG/2 ML Vial IVP PRN (05:15)
[2024-12-23] MEDS: Pantoprazole 40 MG DR.TAB PO SCH (08:12)
[2024-12-23] MEDS: Nystatin 500,000 UNITS/5 ML UDCUP SSW SCH ×2 (11:45→13:10)
[2024-12-23] MEDS: Lidocaine 1% (PF) 30 ML VIAL ONE (13:40)
[2024-12-24 05:27] LABS: #Basophils 0.03 10x3/uL (0.0-0.2); #Eosinophils Less than 0.03 10x3/uL (0.0-0.7); #Monocytes 1.14 10x3/uL (0.11-0.59); #Neutrophils 8.96 10x3/uL (1.40-6.50); %Basophils 0.2 % (0.0-1.0); %Eosinophils 0.0 % (0.0-10.0); %Lymphocytes 19.2 % (21.0-51.0); %Monocytes 8.9 % (0.0-10.0); %Neutrophils 69.8 % (42.0-75.0); Hematocrit 44.6 % (42.0-52.0); Hemoglobin 15.2 g/dL (14.0-18.0); Mean Corpuscular Hemoglobin 31.8 pg (27.0-31.0); Mean Corpuscular Volume 93.3 fL (78.0-98.0); Platelet Count 104 10x3/uL (130-400); Red Blood Cell (RBC) Count 4.78 mill/uL (4.70-6.10); White Blood Cell (WBC) Count 12.84 10x3/uL (4.8-10.8)
[2024-12-24 05:45] LABS: ALT (SGPT) 58 U/L (Less than 45); AST (SGOT) 38 U/L (11-34); Albumin 3.1 g/dL (3.1-4.5); Alkaline Phosphatase 65 U/L (40-110); Anion Gap 10 mmol/L (10-20); BUN (Urea Nitrogen) 44 mg/dL (8.4-25.7); Bilirubin, Total 2.3 mg/dL (0.3-1.2); Calc. Creatinine Clearance 116 mL/min (70-130); Calcium 8.9 mg/dL (7.8-10.44); Carbon Dioxide 28 mmol/L (23-31); Chloride 108 mmol/L (98-107); Globulin 2.4 g/dL (2.4-3.5); Glucose 97 mg/dL (80-115); Potassium 4.2 mmol/L (3.5-5.1); Sodium 142 mmol/L (136-145)
[2024-12-24] MEDS: Acetaminophen 325 MG TAB PO PRN (15:00)
[2024-12-25 06:09] LABS: #Basophils 0.03 10x3/uL (0.0-0.2); #Eosinophils Less than 0.03 10x3/uL (0.0-0.7); #Monocytes 1.18 10x3/uL (0.11-0.59); #Neutrophils 8.76 10x3/uL (1.40-6.50); %Basophils 0.2 % (0.0-1.0); %Eosinophils 0.0 % (0.0-10.0); %Lymphocytes 18.4 % (21.0-51.0); %Monocytes 9.4 % (0.0-10.0); %Neutrophils 70.2 % (42.0-75.0); Hematocrit 44.5 % (42.0-52.0); Hemoglobin 14.9 g/dL (14.0-18.0); Mean Corpuscular Hemoglobin 31.4 pg (27.0-31.0); Mean Corpuscular Volume 93.9 fL (78.0-98.0); Platelet Count 94 10x3/uL (130-400); Red Blood Cell (RBC) Count 4.74 mill/uL (4.70-6.10); White Blood Cell (WBC) Count 12.49 10x3/uL (4.8-10.8)
[2024-12-25 06:10] LABS: ALT (SGPT) 56 U/L (Less than 45); AST (SGOT) 32 U/L (11-34); Albumin 3.2 g/dL (3.1-4.5); Alkaline Phosphatase 74 U/L (40-110); Anion Gap 11 mmol/L (10-20); BUN (Urea Nitrogen) 41 mg/dL (8.4-25.7); Bilirubin, Total 2.4 mg/dL (0.3-1.2); Calc. Creatinine Clearance 118 mL/min (70-130); Calcium 8.9 mg/dL (7.8-10.44); Carbon Dioxide 30 mmol/L (23-31); Chloride 109 mmol/L (98-107); Globulin 2.2 g/dL (2.4-3.5); Glucose 101 mg/dL (80-115); Magnesium 2.6 mg/dL (1.6-2.6); Potassium 4.4 mmol/L (3.5-5.1); Sodium 146 mmol/L (136-145)
[2024-12-25 06:12] LABS: CK (CPK) 316 U/L (30-200)
[2024-12-25 12:07] VITALS: BMI 38.0
[2024-12-26 05:26] LABS: #Basophils 0.03 10x3/uL (0.0-0.2); #Eosinophils 0.03 10x3/uL (0.0-0.7); #Monocytes 1.30 10x3/uL (0.11-0.59); #Neutrophils 8.86 10x3/uL (1.40-6.50); %Basophils 0.2 % (0.0-1.0); %Eosinophils 0.2 % (0.0-10.0); %Lymphocytes 23.6 % (21.0-51.0); %Monocytes 9.5 % (0.0-10.0); %Neutrophils 65.0 % (42.0-75.0); Hematocrit 43.9 % (42.0-52.0); Hemoglobin 14.9 g/dL (14.0-18.0); Mean Corpuscular Hemoglobin 32.1 pg (27.0-31.0); Mean Corpuscular Volume 94.6 fL (78.0-98.0); Platelet Count 91 10x3/uL (130-400); Red Blood Cell (RBC) Count 4.64 mill/uL (4.70-6.10); White Blood Cell (WBC) Count 13.64 10x3/uL (4.8-10.8)
[2024-12-26 05:41] LABS: ALT (SGPT) 53 U/L (Less than 45); AST (SGOT) 40 U/L (11-34); Albumin 3.1 g/dL (3.1-4.5); Alkaline Phosphatase 67 U/L (40-110); Anion Gap 13 mmol/L (10-20); BUN (Urea Nitrogen) 30 mg/dL (8.4-25.7); Bilirubin, Total 2.4 mg/dL (0.3-1.2); Calc. Creatinine Clearance 119 mL/min (70-130); Calcium 9.2 mg/dL (7.8-10.44); Carbon Dioxide 28 mmol/L (23-31); Chloride 110 mmol/L (98-107); Globulin 2.5 g/dL (2.4-3.5); Glucose 82 mg/dL (80-115); Potassium 4.2 mmol/L (3.5-5.1); Sodium 147 mmol/L (136-145)
[2024-12-26 06:03] VITALS: BMI 38.2
[2024-12-26] MEDS: predniSONE 20 MG TAB PO SCH (09:04)
[2024-12-26 15:22] VITALS: BP 160/77; TEMP 97.5
== END 2024-12-26 15:20 | disposition home or self-care (01) | DRG 207 ==
LOC: ERS 10:21 → IMCU/EMU 15:42 → CCU 17:56 → MSONC 12-24 01:16
PROVIDERS: ADMIT Emergency Medicine; ATTEND Emergency Medicine
PROC: 4A133R1 Monitoring of Arterial Saturation, Peripheral, Percutaneous Approach (ICD-10-PCS; principal; 2024-12-14)
PROC: 5A1955Z Respiratory Ventilation, Greater than 96 Consecutive Hours (ICD-10-PCS; 2024-12-14)
PROC: 0T9B70Z Drainage of Bladder with Drainage Device, Via Natural or Artificial Opening (ICD-10-PCS; 2024-12-14)
PROC: 0BH17EZ Insertion of Endotracheal Airway into Trachea, Via Natural or Artificial Opening (ICD-10-PCS; 2024-12-14)
PROC: 3E03329 Introduction of Other Anti-infective into Peripheral Vein, Percutaneous Approach (ICD-10-PCS; 2024-12-15)
PROC: 3E033XZ Introduction of Vasopressor into Peripheral Vein, Percutaneous Approach (ICD-10-PCS; 2024-12-15)
PROC: 0DH67UZ Insertion of Feeding Device into Stomach, Via Natural or Artificial Opening (ICD-10-PCS; 2024-12-15)
PROC: 3E0G76Z Introduction of Nutritional Substance into Upper GI, Via Natural or Artificial Opening (ICD-10-PCS; 2024-12-15)
PROC: 30233J1 Transfusion of Nonautologous Serum Albumin into Peripheral Vein, Percutaneous Approach (ICD-10-PCS; 2024-12-15)
PROC: 5A0945A Assistance with Respiratory Ventilation, 24-96 Consecutive Hours, High Flow/Velocity Cannula (ICD-10-PCS; 2024-12-21)
DX: J96.01 Acute respiratory failure with hypoxia (principal); G93.41 Metabolic encephalopathy; J44.1 Chronic obstructive pulmonary disease with (acute) exacerbation; N17.9 Acute kidney failure, unspecified; J45.902 Unspecified asthma with status asthmaticus; E87.0 Hyperosmolality and hypernatremia; M62.82 Rhabdomyolysis; B37.0 Candidal stomatitis; E87.5 Hyperkalemia; I10 Essential (primary) hypertension; E78.5 Hyperlipidemia, unspecified; F17.210 Nicotine dependence, cigarettes, uncomplicated; R21 Rash and other nonspecific skin eruption; F10.10 Alcohol abuse, uncomplicated; E66.9 Obesity, unspecified; R73.9 Hyperglycemia, unspecified; T38.0X5A Adverse effect of glucocorticoids and synthetic analogues, initial encounter; R74.01 Elevation of levels of liver transaminase levels; I25.10 Atherosclerotic heart disease of native coronary artery without angina pectoris; E83.39 Other disorders of phosphorus metabolism; G47.00 Insomnia, unspecified; D69.6 Thrombocytopenia, unspecified; K59.00 Constipation, unspecified; T68.XXXA Hypothermia, initial encounter; Z90.49 Acquired absence of other specified parts of digestive tract; Z98.890 Other specified postprocedural states; Z79.51 Long term (current) use of inhaled steroids; Z79.899 Other long term (current) drug therapy; Z68.38 Body mass index [BMI] 38.0-38.9, adult
CPT/HCPCS: 36415; 36416; 36600; 71045; 80053; 81001; 81015; 82043; 82550; 82570; 82805; 83605; 83735; 83880; 84100; 84300; 84484; 84540; 85025; 87040; 93005; 93306; 94002; 94003; 94640; 94760; 96365; 96375; J0360; J0456; J0696; J1650; J1815; J1940; J2060; J2270; J2405; J2470; J2704; J2765; J2919; J7030; J7050; J7070; J7120; J7512; J7611; P9047